=== PATIENT | male | born 1985 | race Caucasian/White ===

== ENCOUNTER 2018-11-07 19:01 | Emergency (ER) | payer OTHER ==
[2018-11-07 19:07] VITALS: BP 155/88; PULSE 79; TEMP 98.1
[2018-11-07] MEDS ORDERED: KETOROLAC 60 MG/2 ML VIAL IM STA (19:16)
--- NOTE | 2018-11-07 19:35 | XR ---
EXAMINATION TYPE: XR hand complete RT DATE OF EXAM: 11/07/2018 COMPARISON: NONE HISTORY: Pain TECHNIQUE: 3 views FINDINGS: There is nondisplaced transverse fracture across the base of the fifth metacarpal. There is no dislocation. There is mild soft tissue swelling. Joint spaces are normal. IMPRESSION: Acute nondisplaced fracture proximal fifth metacarpal.
--- NOTE | 2018-11-07 19:36 | XR ---
EXAMINATION TYPE: XR wrist complete RT DATE OF EXAM: 11/07/2018 COMPARISON: NONE HISTORY: Pain TECHNIQUE: 4 views FINDINGS: Carpal bones are intact. Distal radius and ulna appear intact. There is nondisplaced fractu re proximal fifth metacarpal. There is possible nondisplaced fracture also of the base of the fourth metacarpal. IMPRESSION: Fracture proximal fifth metacarpal. Possible fracture base of fourth metacarpal.
--- NOTE | 2018-11-07 19:36 | ED ---
General Adult HPI - General Chief complaint: Extremity Injury, Upper Stated complaint: RT HAND INJURY Time Seen by Provider: 11/07/18 19:13 Source: patient, RN notes reviewed, old records reviewed Mode of arrival: ambulatory Limitations: no limitations - History of Present Illness Initial comments: 33-year-old male patient with past medical history of hypertension hyperlipidemia [facility] after sustaining a right hand injury. Patient reports that he punched a door today, reports pain to his fifth metacarpal. Patient denies any other complaints. Patient has any other injury. Patient denies any thoughts of hurting self or any other people. Systemic: Pt denies fatigue, myalgia, fever/chills, rash. Pt denies weakness, night sweats, weight loss. Neuro: Pt denies headache, visual disturbances, syncope or pre-syncope. HEENT: Pt denies ocular discharge or irritation, otalgia, rhinorrhea, pharyngitis or notable lymphadenopathy. Cardiopulmonary: Pt denies chest pain, SOB, heart palpitations, dyspnea on exertion. Abdominal/GI: Pt denies abdominal pain, n/v/d. : Pt denies dysuria, burning w/ urination, frequency/urgency. Denies new onset urinary or bowel incontinence. MSK: Pt denies myalgia, loss of strength or function in extremities. Neuro: Pt denies new onset weakness, paresthesias. - Related Data Home Medications Medication Instructions Recorded Confirmed FLUoxetine HCL [PROzac] 10 mg PO HS 05/23/15 06/21/15 amLODIPine [Norvasc] 5 mg PO HS 05/23/15 06/21/15 Previous Rx's Medication Instructions Recorded Ibuprofen [Motrin] 800 mg PO Q8HR PRN #30 tab 06/21/15 Allergies Allergy/AdvReac Type Severity Reaction Status Date / Time amoxicillin Allergy Unknown Hives Verified 11/07/18 19:04 Review of Systems ROS Statement: Those systems with pertinent positive or pertinent negative responses have been documented in the HPI. ROS Other: All systems not noted in ROS Statement are negative. Past Medical History Past Medical History: Hyperlipidemia, Hypertension Additional Past Medical History / Comment(s): BLOOD IN STOOL A COUPLE WEEKS AGO. anxiety History of Any Multi-Drug Resistant Organisms: None Reported Past Surgical History: No Surgical Hx Reported Additional Past Surgical History / Comment(s): WISDOM TEETH. Additional Past Anesthesia/Blood Transfusion Reaction / Comment(s): HAS NEVER HAD GENERAL ANESTHESIA. Past Psychological History: Anxiety Smoking Status: Never smoker Past Alcohol Use History: Occasional Past Drug Use History: None Reported - Past Family History Mother Family Medical History: Cancer Additional Family Medical History / Comment(s): BREAST CANCER General Exam - General Exam Comments Initial Comments: Constitutional: NAD, AOX3, Pt has pleasant affect. HEENT: NC/AT, trachea midline, neck supple, no lymphadenopathy. Posterior pharynx non erythematous, without exudates. External ears appear normal, without discharge. Mucous membranes moist. Eyes PERRLA, EOM intact. There is no scleral icterus. No pallor noted. Cardiopulmonary: RRR, no murmurs, rubs or gallops, no JVD noted. Lungs CTAB in anterior and posterior horn. No peripheral edema. Abdominal exam: Abdomen soft and non-distended. Abdomen non-tender to palpation in all 4 quadrants. Bowel sounds active in LLQ. No hepatosplenomegaly. No ecchymosis Neuro: CN II-XII grossly intact. No nuchal rigidity. MSK: Fifth metacarpal mildly tender to palpation. Full active range of motion of fifth digit. Radial pulse +2 bilaterally. Cap refill less than 2 seconds. No ecchymoses. No posterior calf tenderness bilaterally, homans sign negative bilaterally. Posterior tibialis and radial pulse +2 bilaterally. Sensation intact in upper and lower extremities. Full active ROM in upper and lower extremities, 5/5 stregnth. Limitations: no limitations Course Vital Signs 11/07/18 19:05 Temperature 98.1 F Pulse Rate 79 Respiratory 18 Rate Blood Pressure 155/88 O2 Sat by Pulse 97 Oximetry Medical Decision Making - Medical Decision Making 33-year-old male patient with past medical history of hypertension hyperlipidemia [facility] after sustaining a right hand injury. Patient reports that he punched a door today, reports pain to his fifth metacarpal. Patient den ies any other complaints. Patient has any other injury. Patient denies any thoughts of hurting self or any other people. Patient vital signs stable, afebrile. Physical exam displayed: Fifth metacarpal mildly tender to palpation. Full active range of motion of fifth digit. Radial pulse +2 bilaterally. Cap refill less than 2 seconds. No ecchymoses. Plain film of hand and wrist displayed fracture of proximal fifth metacarpal. Possible fracture of base of fourth metacarpal. Patient placed on a gutter splint. Patient neurovascular intact after splint placement. Patient discharged with orthopedic follow-up. Patient will follow up with orthopedic consult 1-2 days. Patient return to ED if patient worsens anyway. Case discussed Dr. Bhat. 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 Patient to follow up with PCP in 1-2 days. Patient to return to ED if symptoms do not improve. Please follow-up with orthopedic surgeon 1-2 days. Return to ER if condition worsens. Please use tylenol and Motrin as needed for pain. Is patient prescribed a controlled substance at d/c from ED?: No Referrals: Chepe Mcdaniels MD [Primary Care Provider] - 1-2 days Quan Mckeon MD [STAFF PHYSICIAN] - 1-2 days
--- NOTE | 2018-11-07 20:05 | ED ---
Medical Decision Making - Medical Decision Making impression is fracture of 5th metacarpal Disposition Clinical Impression: Fracture of fifth metacarpal bone Disposition: HOME SELF-CARE Condition: Stable Instructions (If sedation given, give patient instructions): Hand Fracture (ED) Additional Instructions: Patient to adhere to previously discussed treatment plan and will take m edication(s) as directed. Patient to follow up with PCP in 1-2 days. Patient to return to ED if symptoms do not improve. Please follow-up with orthopedic surgeon 1-2 days. Return to ER if condition worsens. Please use tylenol and Motrin as needed for pain. Is patient prescribed a controlled substance at d/c from ED?: No Referrals: Chepe Mcdaniels MD [Primary Care Provider] - 1-2 days Quan Mckeon MD [STAFF PHYSICIAN] - 1-2 days
[2018-11-07 20:11] VITALS: RESP 19
== END 2018-11-07 20:02 | disposition home or self-care (01) ==
LOC: EC 19:01
DX: S62.306A Unspecified fracture of fifth metacarpal bone, right hand, initial encounter for closed fracture (principal); I10 Essential (primary) hypertension; F41.9 Anxiety disorder, unspecified; Z79.899 Other long term (current) drug therapy; Z88.0 Allergy status to penicillin; W22.8XXA Striking against or struck by other objects, initial encounter
CPT/HCPCS: 73110; 73130; 99284; 29125; 96372; J1885

== ENCOUNTER → 2022-06-09 | Outpatient (CLI) | payer MEDICAID ==
[2022-06-09 17:53] LABS: Basophils # (A) 0.03 X 10*3/uL (0.00-0.10); Basophils % (A) 0.7 %; Eosinophils # (A) 0.16 X 10*3/uL (0.04-0.35); Eosinophils % (A) 3.8 %; Immature Grans, Automated 0.2 %; Lymphocytes # (A) 1.81 X 10*3/uL (0.90-5.00); Lymphocytes % (A) 42.8 %; MCH 29.7 pg (27.0-32.0); MCHC 33.3 g/dL (32.0-37.0); MCV 89.1 fL (80.0-97.0); Mean Platelet Volume 10.5 fL (9.5-12.2); Monocytes # (A) 0.45 X 10*3/uL (0.20-1.00); Monocytes % (A) 10.6 %; NRBC Per 100 WBC 0 /100 WBCS (0.0-0.0); Neutrophils # (A) 1.77 X 10*3/uL (1.80-7.70); Neutrophils % (A) 41.9 %; Platelet Count 266 X 10*3/uL (140-440); RBC 5.05 X 10*6/uL (4.40-5.60); RDW 12.2 % (11.5-14.5); WBC 4.23 X 10*3/uL (4.50-10.00)
[2022-06-09 19:44] LABS: Erythrocyte Sedimentation Rate 3 mm/Hr (0-15)
== END | disposition home or self-care (01) ==
LOC: LABWHC1 11:35
PROVIDERS: ATTEND Internal Medicine Hematology & Oncology
DX: I10 Essential (primary) hypertension (principal); E78.5 Hyperlipidemia, unspecified
CPT/HCPCS: 36415; 82525; 85025; 85652; 86038; 86431

== ENCOUNTER → 2022-07-22 | Outpatient (CLI) | payer MEDICAID ==
--- NOTE | 2022-07-22 11:25 | CA ---
Exercise Stress Test Report Name: Cole Dash Exam Date: 07/22/2022 09:16 Exam Location: [place] Stress Ht (in): 69 Wt (lb): 250 BSA: 2.27 Ordering Phys: Dahlia Rosado MD Referring Phys: JERMAN, Technologist: Estevan Mora Age: 37 Gender: M : 1985 Procedure CPT: Indications: R07.89 ICD-10 Codes: Patient History: CHEST PAIN, HTN, ELEVATED CHOLESTEROL LEVELS Medications: LISINOPRIL/ROVASTATIN/LEXAPRO/COPPER SUPPLEMENTS Meds past 24 hrs: Pretest Chest Pain: STRESS TEST Fredrick Protocol Exercise Duration (min:sec): 09:[address] Depressions (mm): 0 Angina Score: 0 Marrero Score: 9.98 Resting HR (bpm): 93 Peak HR (bpm): 186 Resting BP (mmHg): 148 / 92 Peak BP (mmHg): 211 / 83 MPHR: 181 Target HR: 154 % MPHR: 103 METS: 11.8 Total Dose: Peak Dose: Atropine: Double Product: 30467 BP Response: Stress Termination: TARGET HR REACHED/MAX EXERTION Stress Symptoms: NO SYMPTOMS Stress Summary: The patient's target heart rate was achieved, The hemodynamic response to exercise was normal ECG ANALYSIS Resting ECG: Sinus rhythm. Normal conduction. No arrhythmias. Normal repolarization. Stress ECG: No ECG evidence of ischemia with exercise. CONCLUSIONS Patient falls into low-risk group (DTS >= +5). This associates the patient with an annual CV mortality <= 0.5%. 1. Good exercise tolerance 2. Normal electrocardiographic response to exercise with no evidence of stress induced ischemia Dr. Ezekiel Yancey MD (Electronically Signed) Final Date: 22 July 2022 11:24
--- NOTE | 2022-07-23 13:19 | NM ---
EXAMINATION TYPE: NM stress cardiolite complete DATE OF EXAM: 07/22/2022 COMPARISON: NONE HISTORY: R07.89 TECHNIQUE: After the intravenous administration of 9.7 mCi Tc 99m Sestamibi - Rest images obtained 4 5 minutes post injection. The patient exercised using a DELBERT protocol and 1 minute prior to peak e xercise was injected with 25.0 mCi Tc 99m Sestamibi - Stress images obtained 35 minutes post injectio n. FINDINGS: Targeted heart rate was achieved during performance of the study. Review of stress and rest SPECT ricardo ges demonstrates no distinct perfusion abnormality. Gated analysis shows normal wall motion with an estimated left ventricular ejection fraction of 57 %. IMPRESSION: No scintigraphic evidence for reversible ischemia
== END | disposition home or self-care (01) ==
LOC: RADNMMAIN 07:37
PROVIDERS: ATTEND Family Medicine
DX: R07.89 Other chest pain (principal)
CPT/HCPCS: 93017; 78452; A9500

== ENCOUNTER 2022-11-07 05:54 | Day surgery (SDC) | payer MEDICAID ==
[~2022-11-07 05:54] MED LIST: LACTATED RINGERS 1,000 ML IV SCH; LIDOCAINE 1% (10MG/ML) FOR IV START INTRADERMA PRN
[2022-11-07] MEDS ORDERED: LACTATED RINGERS 1,000 ML IV ONE (06:22)
[2022-11-07 06:30] VITALS: RESP 16; TEMP 97.4
[2022-11-07] MEDS ORDERED: fentaNYL (PF) 50 MCG/ML 2 ML AMP ONE (07:00)
[2022-11-07] MEDS ORDERED: PROPOFOL 10 MG/ML 20 ML VIAL IV ONE (07:00)
[2022-11-07] MEDS ORDERED: LIDOCAINE 2% INJ 20 MG/ML (2 ML VIAL) ONE (07:00)
[2022-11-07] MEDS ORDERED: MIDAZOLAM 2 MG/2 ML VIAL ONE (07:00)
--- NOTE | 2022-11-07 07:25 | P.PCN ---
Date of Procedure: 11/07/22 Procedure(s) Performed: Brief history: Patient is a pleasant 37-year-old white male scheduled for an elective upper endoscopy as well as colonoscopy as a part of evaluation of abdominal pain, change in bowel habits and possible malabsorption. Patient was recently diagnosed with decreased serum copper levels and is being evaluateD by Dr. Zamorano. Procedure performed: Esophagogastroduodenoscopy with biopsy Colonoscopy Preoperative diagnosis: Abdominal pain/change in bowel habits/rule out malabsorption Anesthesia: MAC Procedure: After informed consent was obtained from the patient was brought into the endoscopy unit and IV sedation was administered by anesthesia under continuous monitoring. Initially upper endoscopy was done. The Olympus GF 160 video endoscope was inserted inserted into the mouth and esophagus intubated without any difficulty and was gradually advanced into the stomach and duodenum and carefully examined. The bulb and second part of the duodenum appeared normal. The scope was then withdrawn into the stomach adequately insufflated with air and upon careful examination the antrum had mild gastritis and biopsies were done from this area. Because of the body, cardia and fundus appeared normal. The scope was then withdrawn into the esophagus. The GE junction was located at 40 cm to the incisors. small hiatal hernia noted. It appeared regular with no erythema erosions or ulcerations. there was a 3 mm polyp at the GE junction which was biopsied. Rest of the esophagus appeared normal. Patient tolerated the procedure well. At this time the patient continued to remain sedation. Initial digital rectal examination was normal. Olympus CF 160 video colonoscope was then inserted into the rectum and gradually advanced to the cecum without any difficulty. Careful examination was performed as the scope was gradually being withdrawn. The prep was excellent. The cecum, ascending colon, transverse colon, descending colon, sigmoid colon and rectum appeared normal. Retroflexion was performed in the rectum and no lesions were noted. Patient tolerated the procedure well. Impression: 1. Upper endoscopy revealed small hiatal hernia, 3 mm GE junction polyp and gastritis 2. Colonoscopy was within normal limits with no evidence of colitis or colorectal neoplasia Recommendations: Findings of this examination were discussed with the patient as well as his family. He was advised to follow with the biopsy results. recommend repeat screening colonoscopy in 10 years.
[2022-11-07 07:42] VITALS: BP 115/67; PULSE 76
== END 2022-11-07 08:23 | disposition home or self-care (01) ==
LOC: ORWHC2ENDO 05:54
PROVIDERS: ATTEND Internal Medicine Gastroenterology
DX: K29.50 Unspecified chronic gastritis without bleeding (principal); K21.00 Gastro-esophageal reflux disease with esophagitis, without bleeding; K44.9 Diaphragmatic hernia without obstruction or gangrene; I10 Essential (primary) hypertension; E78.5 Hyperlipidemia, unspecified; F41.9 Anxiety disorder, unspecified; Z79.899 Other long term (current) drug therapy
CPT/HCPCS: 88305; 45378; 43239; J2250; J3010; J2704; J2001